=== PATIENT | male | born 1955 | race Two or more races ===

== ENCOUNTER 2023-02-08 10:54 | Inpatient (IN) | payer MEDICARE, OTHER ==
[~2023-02-08] VITALS: Ht 172.7 cm; Wt 83.5 kg
--- NOTE | 2023-02-08 11:15 | NUR ---
DAY SURGERY PATIENT A/Ox4. ABLE TO SIGN CONSENTS FOR DAY SURGERY/ AND BELONGING LIST. PATIENT PREPARED FOR SURGERY, CHANGED INTO GOWN, VITALS TAKEN, IV PLACED ON R HAND. PRE-OP CHECK LIST COMPLETE.
[2023-02-08] MEDS ORDERED: CARV12.52 PO (11:41)
[2023-02-08] MEDS ORDERED: BUPR1FIL3 SL (11:41)
[2023-02-08] MEDS ORDERED: ASPI-1169 PO (11:41)
[2023-02-08] MEDS ORDERED: ROSU40TA PO (11:41)
[2023-02-08] MEDS ORDERED: GABA600T12 PO (11:41)
[2023-02-08] MEDS ORDERED: METF-440 PO (11:41)
[2023-02-08] MEDS ORDERED: TEST2.5G10 TD (11:41)
[2023-02-08] MEDS ORDERED: LORA-259 PO (11:41)
[2023-02-08] MEDS ORDERED: ICOS1CAP PO (11:41)
[2023-02-08] MEDS ORDERED: OXYMETAZOLINE HCL NASAL SPRAY 30 ML BOTTLE NS ONE (12:37)
[2023-02-08] MEDS ORDERED: LIDOCAINE 2%-EPI 1:100,000 30 ML VIAL ONE (13:05)
[2023-02-08] MEDS ORDERED: VANCOMYCIN 1 GM VIAL ONE (13:06)
[2023-02-08] MEDS ORDERED: dexaMETHasone SOD PHOSPHATE 10 MG/ML VIAL ONE (13:06)
[2023-02-08] MEDS ORDERED: FENTANYL PF 100MCG/2ML AMPUL ONE (13:06)
[2023-02-08] MEDS ORDERED: ROCURONIUM BROMIDE 50 MG/5 ML ONE (13:07)
[2023-02-08] MEDS ORDERED: FAMOTIDINE/PF INJ 20 MG/2 ML VIAL IV ONE (13:07)
[2023-02-08] MEDS ORDERED: Magnesium 1 GM/2 ML VIAL ONE (13:07)
[2023-02-08] MEDS ORDERED: IV NS 0.9% 1,000 ML IV PRN (15:30)
[2023-02-08] MEDS ORDERED: HYDROMORPHONE 1 MG/1 ML DISP.SYRIN IV PRN (15:30)
[2023-02-08] MEDS ORDERED: ACETAMINOPHEN 325 MG TABLET PO PRN (15:30)
[2023-02-08] MEDS ORDERED: ONDANSETRON HCL/PF 4 MG/2 ML VIAL IV PRN (15:30)
--- NOTE | 2023-02-08 15:50 | NUR ---
ADMISSION NOTE PATIENT RECEIVED VIA BED. REPORT GIVEN BY WENDI OMALLEY. PATIENT A/Ox4 ABLE TO MAKE NEEDS KNOW. ON 2L NC NO S/S OF SOB. NO S/S OF ACTIVE BLEEDING. PATIENT ORIENTED TO ROOM AND CALL LIGHT WITHIN REACH. IV ACCESS REMAINS ON THE R HAND INTACT AND PATENT, FLUSHING WELL. VITALS TAKEN AND CHARTED. SKIN INTACT. NO EDEMA PRESENT. PATIENT PAIN LEVEL 6. PAIN MANAGEMENT PER MD ORDER. SAFETY PRECAUTION IN PLACE PER GUIDELINES. .
[2023-02-08 16:00] VITALS: BP 123/80; TEMP 97.7; O2SAT 99
[2023-02-08] MEDS ORDERED: IV NS 0.9% 1,000 ML IV ONE (17:00)
--- NOTE | 2023-02-08 19:00 | NUR ---
RN OPENING NOTE PT IS AWAKE IN BED W/ FAMILY ON BEDSIDE. PT IS A/O X 4, ABLE TO MAKE NEEDS KNOWN. PT IS IN RA, TOLERATING WELL, BREATHING EVEN AND UNLABORED @ THIS TIME. PT IV PRESENT ON THE RIGHT HAND #22G SALINE LOCK, PATENT, INTACT AND FLUSHES WELL W/ NO S&SX OF INFILTRATION @ SITE NOTED. SAFETY MEASURE IS IN PLACE. BED IN LOWEST AND LOCKED POSITION. SIDE RAILS UP X 2. BEDSIDE TABLE AND CALL LIGHT IS EASY REACH. BED ALARM IS ON. WILL CONTINUE TO MONITOR PT ACCORDINGLY.
[2023-02-08] MEDS ORDERED: MAGNESIUM HYDROXIDE 30 ML UDC PO PRN (19:30)
[2023-02-08 20:30] VITALS: BP 116/71; TEMP 97.9; O2SAT 93
[2023-02-09] MEDS: VANCOMYCIN 1 GM in IV D5W 250ml IV SCH ×2 (01:00→01:39)
--- NOTE | 2023-02-09 01:00 | NUR ---
PT REFUSED TO HAVE AN IV INSERTION. PT STATED THAT HE DO NOT NEED MEDICATION HE IS ABOUT TO GO HOME. PT IS AGITATED AND WAS LOOKING FOR HIS . EXPLAINED TO PT THAT THERE IS A MD'S ORDER FOR VANCOMYCIN, NURSE ALSO EXPLAINED THE RISK AND BENEFITS OF THE MEDICATION. PT STILL REFUSED DESPITE THE EXPLANATION. CHARGE NURSE IS INFORMED AND MADE AWARE. MD IS INFORMED AND MADE AWARE. WILL CONTINUE TO MONITOR PT ACCORDINGLY.
[2023-02-09 05:44] LABS: BASOPHILS # (AUTO) 0.1 K/uL (0.0-0.2); BASOPHILS % (AUTO) 0.5 % (0.0-2.0); HEMATOCRIT 33 % (39-51); HEMOGLOBIN 10.6 g/dL (13.5-17.5); LYMPHOCYTES % (AUTO) 8.6 % (20.0-44.0); MEAN CORPUSCULAR HGB CONC 32 g/dl (31.0-36.0); MEAN CORPUSCULAR VOLUME 83 fL (80-96); MONOCYTES # (AUTO) 0.5 K/uL (0.1-1.30); MONOCYTES % (AUTO) 4.4 % (2.0-12.0); NEUTROPHILS # (AUTO) 10.4 K/uL (1.8-8.9); NEUTROPHILS % (AUTO) 86.5 % (43.0-81.0); PLATELET COUNT (AUTO) 248 K/uL (150-450); RED BLOOD CELL COUNT(AUTO) 4.04 MIL/uL (4.5-6.0)
[2023-02-09 06:05] LABS: CALCIUM, SERUM 9.8 mg/dL (8.5-10.1); CREATININE 0.9 mg/dL (0.6-1.3); MAGNESIUM 2.2 mg/dL (1.8-2.4); PHOSPHORUS 3.5 mg/dL (2.5-4.9); POTASSIUM 4.4 mmol/L (3.5-5.1)
--- NOTE | 2023-02-09 06:36 | NUR ---
RN CLOSING NOTE PT IS AWAKE & RESTING COMFORTABLY IN BED. PT IS A/O X 4, RESPONSIVE & UNCOOPERATIVE. PT IS IN RA, W/ NO S&SX OF RESPIRATORY DISTRESS @ THIS TIME. PT HAS NO IV PRESENT D/T PT REFUSED IV INSERTION. SAFETY MEASURE IS IN PLACE. BED IN LOWEST AND LOCKED POSITION. SIDE RAILS UP X 2. BEDSIDE TABLE AND CALL LIGHT IS EASY REACH. BED ALARM IS ON. WILL ENDORSE PT TO THE NEXT SHIFT FOR FELY.
--- NOTE | 2023-02-09 07:25 | NUR ---
MS RN OPENING NOTE Received patient in bed, awake. A/O x 4, able to make needs known. On room air, tolerating well. No IV access, per night Nurse patient refused IV insertion. Safety measures maintained: bed in lowest locked position, side rails up x 2, call light and tray table within easy reach. Will continue to monitor.
[2023-02-09] MEDS ORDERED: PANTOPRAZOLE 40 MG TABLET.DR PO SCH (07:30)
[2023-02-09 08:00] VITALS: BP 100/50; TEMP 98.1; O2SAT 99
[2023-02-09] MEDS ORDERED: CARVEDILOL 12.5 MG TABLET PO SCH (09:00)
[2023-02-09] MEDS ORDERED: ASPIRIN 81 MG TAB.CHEW PO SCH (09:00)
[2023-02-09] MEDS: METFORMIN 500 MG TABLET PO SCH ×2 (09:00→09:27)
--- NOTE | 2023-02-09 09:00 | NUR ---
RN NOTE Patient refused IV insertion and IV Vancomycin despite teaching and reinforcements, MD aware.
[2023-02-09 09:27] VITALS: BP 110/60
--- NOTE | 2023-02-09 10:55 | NUR ---
MS TRAINING DIRECTOR NOTE Patient discharged to home in stable condition, ambulatory. A/O x 4, no c/o pain/discomfort. On room air, tolerating well. No skin issues, no bleeding on surgical site. All belongings accounted for. Discharge instruction and packet given to patient, verbalized understanding. Patient left the unit at 1044 accompanied by relative (sister). MD and Charge Nurse aware of discharge.
[2023-02-09] MEDS ORDERED: GABAPENTIN 300 MG CAPSULE PO SCH (17:00)
== END 2023-02-09 10:43 | disposition home or self-care (01) | DRG 517 ==
LOC: DS 10:54 → MED 10:55
PROVIDERS: ADMIT Nurse Practitioner Family; ATTEND Nurse Practitioner Family
PROC: 0NSR04Z Reposition Maxilla with Internal Fixation Device, Open Approach (ICD-10-PCS; principal; 2023-02-08)
PROC: 0NUR07Z Supplement Maxilla with Autologous Tissue Substitute, Open Approach (ICD-10-PCS; 2023-02-08)
PROC: 0NBR0ZX Excision of Maxilla, Open Approach, Diagnostic (ICD-10-PCS; 2023-02-08)
DX: M84.48XK Pathological fracture, other site, subsequent encounter for fracture with nonunion (principal); X58.XXXD Exposure to other specified factors, subsequent encounter; E78.5 Hyperlipidemia, unspecified; I25.10 Atherosclerotic heart disease of native coronary artery without angina pectoris; Z87.891 Personal history of nicotine dependence; Z95.1 Presence of aortocoronary bypass graft; D16.5 Benign neoplasm of lower jaw bone; M27.2 Inflammatory conditions of jaws; M27.40 Unspecified cyst of jaw; M51.9 Unspecified thoracic, thoracolumbar and lumbosacral intervertebral disc disorder
CPT/HCPCS: 36415; 80048-TC; 80061-TC; 82962-TC; 83735-TC; 84100-TC; 85025-TC; 88305-TC; 88311-TC; A4223; C1713; G0378; J1100; J1170; J2405; J2704; J2765; J3010; J3370; J3475; J3490; J7030; J7060